=== PATIENT | male | born 1955 | race Caucasian/White ===

== ENCOUNTER 2024-12-03 06:47 | Day surgery (SDC) | payer MEDICARE ==
[~2024-12-03 06:47] MED LIST: ceFAZolin 2 GM in Water For Injection, Sterile 20 ML IVPUSH ONE
[2024-12-03] MEDS ORDERED: Propofol 200 MG/20 ML SDV ONE (07:26)
[2024-12-03] MEDS ORDERED: fentaNYL 100 MCG/2 ML SDV ONE ×2 (07:26→08:36)
[2024-12-03] MEDS ORDERED: Midazolam 1 MG/ML 2 ML SDV ONE (07:27)
[2024-12-03] MEDS: Lactated Ringers 1,000 ML IV SCH (07:34)
[2024-12-03] MEDS ORDERED: Ondansetron 4 MG/2 ML SDV IVPUSH PRN (08:02)
[2024-12-03] MEDS ORDERED: Naloxone 0.4 MG/ML SDV IVPUSH PRN (08:02)
[2024-12-03] MEDS ORDERED: Albuterol 0.083% 2.5 MG/3 ML Neb Soln NEB PRN (08:02)
[2024-12-03] MEDS ORDERED: fentaNYL 50 MCG/ML SDV IVPUSH PRN (08:02)
[2024-12-03] MEDS ORDERED: Dexamethasone 4 MG/ML 5 ML MDV ONE (08:16)
[2024-12-03 11:59] VITALS: BP 126/74; PULSE 76
== END 2024-12-03 11:00 | disposition home or self-care (01) ==
LOC: MW.SDS 06:47
PROVIDERS: ATTEND Surgery
DX: C83.30 Diffuse large B-cell lymphoma, unspecified site (principal); D64.9 Anemia, unspecified; I10 Essential (primary) hypertension; E66.01 Morbid (severe) obesity due to excess calories
CPT/HCPCS: 36561; 71045; 76000; A9270; C1788; J0665; J0690; J1100; J1642; J2003; J2250; J2371; J2704; J3010; J7120; J3490